=== PATIENT | male | born 1965 | race Caucasian/White ===

== ENCOUNTER 2017-01-21 10:06 | Day surgery (SDC) | payer OTHER ==
[2017-01-21] VITALS (22 sets, daily range): BP systolic 110–145; BP diastolic 69–91; PULSE 78–96; RESP 15–24; Ht 175.3 cm; Wt 89.7 kg
[~2017-01-21] VITALS: Ht 175.3 cm; Wt 89.7 kg
[2017-01-21] MEDS ORDERED: METF500T4 PO (10:56)
[2017-01-21] MEDS ORDERED: LISI-313 PO (10:58)
[2017-01-21] MEDS ORDERED: SIMV40TA2 PO (10:59)
[2017-01-21] MEDS ORDERED: METO100T13 PO (10:59)
[2017-01-21 11:18] LABS: ADD SCAN DIFF NO
[2017-01-21 11:44] LABS: BASOPHILS % 0.4 % (0.0-2.0); EOSINOPHILS # 0.1 10^3/ul (0.0-0.5); EOSINOPHILS % 1.3 % (0.0-7.0); HEMATOCRIT 42.4 % (42.0-52.0); HEMOGLOBIN 14.2 g/dl (14.0-18.0); LYMPHOCYTES # 3.4 10^3/ul (0.8-2.9); LYMPHOCYTES % 43.1 % (15.0-51.0); MEAN CORPUSCULAR HGB CONC 33.5 g/dl (32.0-37.0); MEAN CORPUSCULAR VOLUME 89.5 fl (82.0-101.0); MEAN PLATELET VOLUME 10.7 fl (7.4-10.4); MONOCYTE # 0.6 10^3/ul (0.3-0.9); MONOCYTES % 7.6 % (0.0-11.0); NEUTROPHIL # 3.7 10^3/ul (1.6-7.5); NEUTROPHILS % 47.2 % (39.0-77.0); PLATELET COUNT 212 10^3/UL (140-415); RED BLOOD COUNT 4.74 10^6/ul (4.70-6.10); RED CELL DISTRIBUTION WIDTH 13.2 % (11.5-14.5); WHITE BLOOD COUNT 7.8 10^3/ul (4.8-10.8)
[2017-01-21 11:48] LABS: INR 1.01; PROTIME 13.3 Sec (12.2-14.2)
[2017-01-21 11:49] LABS: PARTIAL THROMBOPLASTIN TIME 26.7 Sec (25.0-35.0)
[2017-01-21 11:55] LABS: ALBUMIN/GLOBULIN RATIO 1.78; BILIRUBIN,INDIRECT 0.3 mg/dl (0-1.1); BILIRUBIN,TOTAL 0.3 mg/dl (0.2-1.3); TOTAL PROTEIN 7.8 g/dl (6.1-8.1)
[2017-01-21 12:00] LABS: CALCIUM 9.5 mg/dl (8.4-10.2); CREATININE 0.88 mg/dl (0.61-1.24); POTASSIUM 4.5 mmol/L (3.5-5.1)
[2017-01-21] MEDS ORDERED: IODIXANOL LOCM 100 ML BTL ONE (13:04)
[2017-01-21] MEDS ORDERED: LIDOCAINE 1% (MDV) 20 ML INJ ONE (13:04)
[2017-01-21] MEDS ORDERED: HEPARIN 1000 UNITS/ML 10 ML INJ ONE (13:04)
[2017-01-21] MEDS ORDERED: MIDAZOLAM 1 MG/ML 2 ML INJ ONE (13:05)
[2017-01-21] MEDS ORDERED: VERAPAMIL 5 MG INJ ONE (13:05)
[2017-01-21] MEDS ORDERED: FENTAnyl 50 MCG/ML VIAL ONE (13:05)
[2017-01-21] MEDS ORDERED: NITROGLYCERIN (IC) 100 MCG/ML INJ ONE (13:06)
[2017-01-21] MEDS ORDERED: ADENOSINE 90 MG in SOD CHLORIDE 0.9% 90 ML IV SCH (13:30)
[2017-01-21] MEDS ORDERED: ASPIRIN 325 MG TAB ONE (13:49)
[2017-01-21] MEDS ORDERED: SOD CHLORIDE 0.9% 500 ML ONE (13:49)
[2017-01-21] MEDS ORDERED: CLOPIDOGREL 300 MG TAB ONE (13:49)
[2017-01-21] MEDS ORDERED: SOD CHLORIDE 0.9% 1,000 ML IV SCH (13:59)
[2017-01-21] MEDS ORDERED: ONDANSETRON 4 MG INJ IV PRN (14:00)
[2017-01-21] MEDS ORDERED: AL HYDROX/MG HYDROX/SIMETH 30 ML CUP PO PRN (14:00)
[2017-01-21] MEDS ORDERED: ACETAMINOPHEN 325 MG TAB PO PRN (14:00)
[2017-01-21] MEDS ORDERED: OXYCODONE/ACETAMINOPHEN (5/325) TAB PO PRN (14:00)
--- NOTE | 2017-01-21 14:04 | PDOCDIS ---
Discharge Instructions CONDITION Patient Condition: Good HOME CARE INSTRUCTIONS: Diet Instructions: Low Fat /Cholesterol ACTIVITY: Activity Restrictions: Slowly Increase Activity Avoid heavy lifting (x 3 days) Do not Drive (x 1 day) OTHER ORDERS: Other Orders: restart on metformin 01/24/17 Lenard Bundy DO Jan 21, 2017 14:04
--- NOTE | 2017-01-22 06:40 | CARRPT ---
DATE OF PROCEDURE: 01/21/2017 PROCEDURES: 1. ____ 2. Right and left coronary ____. 2. Left ventricular pressure measurements. 3. FFR of the left anterior descending. 4. A PCI of the mid LAD with placement of a 2.5 x 20 mm ____ drug-eluting stent. 5. Right radial artery approach. PATIENT HISTORY: This is a 51-year-old male with past medical history of coronary artery disease wh o presents with chest pressure and abnormal stress test. FINDINGS: 1. LV pressure was 125/92 with an EDP of 8. 2. Aortic on pullback was 119/74. CORONARY ANATOMY: 1. RCA is a medium caliber vessel and is dominant. There is a proximal 80% stenosis, mid 20% steno sis. There is a patent stent seen in the distal vessel with 30% in-stent restenosis, distal 20% darrell nosis. 2. Left main is a large caliber vessel with no significant disease. 3. Circumflex is a medium caliber vessel. There is an ostial 40% stenosis. The first medium calib er obtuse marginal with a proximal 50% diffuse areas of stenosis. 4. LAD is a medium caliber vessel with an ostial to proximal 40% diffuse stenosis, mid 50% stenosis . Right prior to the second diagonal, there is a 50% stenosis and then a 60 to 70% stenosis in the mid segment. DESCRIPTION OF PROCEDURE: The patient was brought to the [facility] after informed consent. The live ent was prepped and draped as per protocol. Right radial access was obtained, and a 5 ____ 6-Turkish sheath was placed in the right radial artery. A 5-Turkish [place]ee catheter was used to engage the RCA , and angiogram was performed. Next to engage the left main. Angiogram was performed. The patient with mild to moderate disease in the proximal LAD with at least moderate disease in the mid LAD. G iven the mid LAD lesion approximately 60 to 70%, we proceeded with FFR of the LAD. Heparin was used for anticoagulation. An XB LAD 3.5 guide catheter was used. The lesion was crossed with a [employer] FFR wire. Within the first 30 seconds of adenosine initiation, FFR was 0.66 which was significant. stopped the adenosine. The lesion was predilated and stented with a 2.5 x 20 mm ____ drug-eluting stent. The second diagonal was jailed, but there was ELMA 3 flow noted. These STS system was used to post-dilate the stent. There was good balloon expansion and good stent expansion with ELMA 3 fl ow with no evidence of dissection. Proximal to the stent, there was diffuse 30 to 40% stenosis as w ell in the ostium, but as mentioned, it was not flow limiting and not considered severe enough for r equiring PCI. All catheters and wires were removed. Prior to this, pigtail catheter was used to en ter the left ventricle, and pressure measurements were obtained as well as pullback. There were no immediate complication. DIAGNOSIS: Coronary artery disease. COMPLICATIONS: None. BLOOD LOSS: Minimal. RECOMMENDATIONS: Dual antiplatelet therapy for a minimum of 1 year. The patient with diffuse areas of coronary artery disease. The patient does have a catheterization report from 06/26/2011 with no significant change in disease in the circumflex or in the proximal LAD. If no contraindication, wo uld consider lifelong dual antiplatelet therapy. Findings and plan were discussed with the patient in detail. Dictated By: WILMA GALLEGOS/ALICJA Conf#: [id number] DID#: [id number]
--- NOTE | 2017-01-22 15:43 | RADRPT ---
Vent Rate: 97 bpm RR Interval: 0 msec [place] Interval: 160 msec QRS Duration: 92 msec QT Interval: 346 msec QTC Interval: 439 msec P-R-T [place]: 37 - -32 - -12 degrees Normal sinus rhythm Left axis deviation Inferior infarct , age undetermined Anterolateral infarct , age undetermined Abnormal ECG Electronically Signed By: Lenard Bundy [id number]
--- NOTE | 2017-01-22 15:45 | RADRPT ---
Vent Rate: 83 bpm RR Interval: 0 msec [place] Interval: 160 msec QRS Duration: 94 msec QT Interval: 344 msec QTC Interval: 404 msec P-R-T [place]: 32 - -22 - -25 degrees Normal sinus rhythm Inferior infarct , age undetermined Anterolateral infarct , age undetermined Abnormal ECG Electronically Signed By: Lenard Bundy [id number]
== END 2017-01-21 21:32 | disposition home or self-care (01) ==
LOC: SDS 10:06
PROVIDERS: ATTEND Internal Medicine Cardiovascular Disease
DX: I25.10 Atherosclerotic heart disease of native coronary artery without angina pectoris (principal); R94.39 Abnormal result of other cardiovascular function study
CPT/HCPCS: 80053; 82962; 85025; 85610; 85730; 93005; 93458; C1725; C1769; C1874; C1887; C9600; J0153; J1644; J2250; J3010; J7040; Q9967; Z7610